=== PATIENT | male | born 1960 | race Asian ===

== ENCOUNTER 2019-08-02 19:55 | Emergency (ER) | payer BC ==
[~2019-08-02] VITALS: Ht 167.6 cm; Wt 65.9 kg
[~2019-08-02 19:55] MED LIST: HYDR25TA PO; LISI10TA7 PO
[2019-08-02] MEDS ORDERED: ASPI81 PO (20:13)
[2019-08-02] MEDS ORDERED: SIMV-260 PO (20:13)
[2019-08-02] MEDS ORDERED: ATEN25TA PO (20:13)
[2019-08-02] MEDS ORDERED: ACETAMINOPHEN 500 MG TABLET PO ONE (20:30)
[2019-08-02 22:24] VITALS: BP 153/87
== END 2019-08-02 22:30 | disposition home or self-care (01) ==
LOC: EMS 19:56
DX: R51 Headache (principal); I10 Essential (primary) hypertension; E78.00 Pure hypercholesterolemia, unspecified; Z87.891 Personal history of nicotine dependence; Z79.82 Long term (current) use of aspirin; Z79.899 Other long term (current) drug therapy; V49.40XA Driver injured in collision with unspecified motor vehicles in traffic accident, initial encounter; Y93.89 Activity, other specified; Y92.89 Other specified places as the place of occurrence of the external cause; Y99.8 Other external cause status
CPT/HCPCS: 70450; 70486; 99406